=== PATIENT | female | born 1945 | race Caucasian/White ===

== ENCOUNTER 2018-01-04 10:00 | Outpatient (RCR) | payer MEDICARE, SELFPAY ==
--- NOTE | 2017-12-01 13:01 | HP.PTEVAL_ITS ---
Patient's Visit Information CLARE BLANTON is a 72 year old F referred to Physical Therapy by Eusebio Chacon MD with a diagnosis of LUMBAR DDD. Date of Evaluation: 12/01/17 Physical Therapist: Rachna Neil - Visit Plan Frequency: 2-3x /Week Duration: 4-6 Weeks Plan: *GOES BY DEXTER* *CYSTITIS IMPLANT LEFT HIP*. AQUATIC THERAPY FOR PAIN RELEIF, POSTURE CORRECTION/STRENGTHENING, INSTRUCTION IN APPROPRIATE BODY MECHANICS AND ACTIVITY MODIFICATIONS. DLS STARTING WITH A NEUTRAL SPINE PROGRESSING ROM TOLERATED. BEVERLY LE ROM, STRETCHING AND STRENGTHENING. HEP INSTRUCTION. PATIENT PLANS TO MOVE TO [place] IN THE NEAR FUTURE AND WILL HAVE ACCESS TO A POOL THERE. - Subjective Subjective: Diagnosis: LUMBAR DDD. Work/Leisure: RETIRED. Disability: NO. Present symptoms: BEVERLY LOW BACK PAIN. PATIENT DENIES BEVERLY LE SX'S BUT SHE WAS HAVING BURSITIS IN HER LEFT HIP IN WHICH IS BETTER NOW. Present since: LAST JANUARY. Pain Scale: Worst - 8/10 Least - 0/10. Currently: . Commenced as a result of: L1 COMPRESSION FRACTURE MOVING FURNITURE IN [place] MOVING INTO [facility]. Symptoms at onset: LOW BACK PAIN. Worse: STANDING TOO LONG, BENDING, TRYING ON THE FLOOR OR TRYING TO GET BACK UP FROM THE FLOOR. WALKING/SHOPPING. Better: AFTER LYING DOWN FOR AWHILE, SITTING IN RECLINER WITH BACK SUPPORT, MAYBE RECENT NIXON. Disturbed sleep: TAKES ADVIL BEFORE BED. Previous history/Previous treatment: L3 COMPRESSION FX 2007, T1 FX WAS RECENTLY DISCOVED BUT APPARENTLY OLDER. L1 COMPRESSION FX JANUARY 2017. L3 FX WAS TREATED WITH WATER AND LAND PT BUT DID NOT HAVE KYPHOPLASTY - GOOD OUTCOME WITH IT ONLY BOTHERING HER FROM TIME TO TIME AND DID NOT PREVENT HER FROM DOING THINGS. RECENT KYPHOPLASTY FEB 2017 FOR THE L1 COMPRESSION FX - SHE REPORTS GETTING SOME RELIEF BUT NOT COMPLETE RELEIF OF PAIN AFTER KYPHOPLASTY. CREAM PRESCRIPTION MEDICINE FOR LEFT HIP BUSITIS THAT SHE IS STILL USING AND STARTED ABOUT 3 WEEKS AGO. LEFT HIP PAIN IS GONE NOW. SHE ALSO STARTED NIXON'S WITH DR. GAYLE STARTING IN MAR 2017. SHE HAS GONE IN FOR NIXON'S A TOTAL OF 3 TIMES AT THIS POINT WITH THE LAST TIME BEING LAST Wednesday. Coughing/ sneezing/straining: NEGATIVE. Gait: PATIENT REPORTS SHE HAS NEUROPATHY IN HER FEET AND ALTHOUGH SHE DOESN'T HAVE A LOT OF PAIN WALKING, HER WALKING ISN'T BACK TO HER NORMAL YET COMPARED TO BEFORE THIS MORE RECENT COMPRESSION FX. WHEN SHE GOES SHOPPING SHE LEANS ON A GROCERY CART TO RELIEVE THE PRESSURE IN HER LOW BACK AND SHE DID NOT HAVE TO DO THIS BEFORE. Difficulty initiating urinatin: NO. Accidents: NO. Unexplained weight loss: NO. Imaging: PATIENT HAS AN IMPLANT FOR CYSTITIS THEREFORE COULD NOT DO MRI. CAT SCAN REVEALING DDD AND COMPRESSION FX. NO RECENT IMAGING SINCE KYPHOPLASTY THAT PATIENT RECALS. PMH/Recent major surgery: LOW BACK ARTHRITIS. OSTEOPOROSIS. NEUROPATHY. CYSTITIS. HAND ARTHRITIS. NIDDM. NO CANCER. NO STROKE. HTN. NO HEART PROCEEDURES. OTHER: PATIENT REPORTS SHE IS REALLY BUSY RIGHT NOW BECAUSE THEY ARE HAVING A YARD SALE IN DECEMBER AND THEN THEY ARE GOING TO PUT THEIR HOUSE UP FOR SALE AND ARE PLANNING TO MOVE TO [place]. PLANNING TO BE HERE AT LEAST 6-7 WEEKS. - Objective Sitting/Standing Posture: POOR. INCREASED KYPHOSIS, FORWARD HEAD AND ROUNDED SHOULDERS. Lordosis: REDUCED. Lateral shift: NO. Relevant shift: N/A. Active Correction of posture: WORSE HOWEVER SHE TOLERATES PASSIVE CORRECTION WITH SUPPORT IN HER LOW BACK WELL. Other Observations: INDEP GAIT INTO PT WITHOUT ANY ASSISTIVE DEVICES OR LOSS OF BALANCE. SHE WALKS WITH MILD INCREASED TRUNK FLEXION. SHE IS ABLE TO DEMONSTRATE INDEP TRANSFER FROM SIT TO STAND WITHOUT UE ASSIST. Motor deficit: MMT'ING: BEVERLY HIPS 4-/5, KNEE EXT 5/5 , KNEE FLEX 5/5 AND ANKLE DORSIFLEXION 5/5. I PROCEEDED CAREFULLY WITH TESTING OF HIPS AND TESTING DOES PROVOKE INCREASED BACK PAIN BUT DID NOT REMAIN WORSE A RESULT. Sensory deficit: BEVERLY LE LIGHT TOUCH SENSATION APPEARS TO BE INTACT AND SYMMETRICAL. ROM deficit: TIGHT BEVERLY HIP FLEXORS AND HS'S. Lumbar mvmt loss: flex - MOD. ext - KORI. R SG - KORI. L SG - KORI. LUMBAR ROM TESTING ALL PLANES PROVOKES C/O PAIN AT THE END OF THE AVAILABLE RANGE BUT DOES NOT REMAIN WORSE A RESULT. Core strength: POOR - Goals Goal 1:: DECREASE C/O LOW BACK PAIN Goal Time Frame: 4-6 Weeks Goal 2:: IMPROVE STANDING, WALKING AND TRANSFER FUNCTION Goal Time Frame: 4-6 Weeks Goal 3:: INSTRUCT IN PROPHYLAXIS/HEP Goal Time Frame: 4-6 Weeks - Rehabilitation Potential Rehabilitation Potential: Fair - Anticipated Interventions Patient/Client Instruction: Educate patient on: Condition, Plan of Care, Risk Factors, Benefits of Fitness Program For the Purpose of:: To improve self management Therapeutic Exercise to Include: Strength training, Endurance training, Body mechanics, Postural training, Flexibilty training, In an aquatic setting, Active ROM, Dynamic Lumbar Stabilization For the Purpose of:: To decrease pain, To increase ROM, To improve muscle performance and motor function, To increase tolerance to activity/condition/ position, To improve ability of physical actions for home/community/work/leisure Thank you for the opportunity to evaluate your patient. For Medicare and Medicare HMO plans, please review the plan of care and approve it. It will need to be FAXED BACK to us at [phone] for Medicare purposes. Please let me know if there are questions or concerns regarding this plan of care. Physician Signature: Date:
--- NOTE | 2018-04-21 12:22 | HP.PTDCSUM_ITS ---
HP - PT D/C Summary It has been my pleasure to treat CLARE BLANTON under orders from Eusebio Chacon MD, for the diagnosis of LUMBAR DDD for a total of 7 visit(s). Discharge Date: 01/04/18 Please see the following information for a summary of their discharge status. - Subjective Subjective: PATIENT REPORTS SHE HAS HAD A LOT OF STRESS GOING ON AT HOME. STATES SHE THOUGHT SHE WAS MAKING A LITTLE BIT OF PROGRESS WITH THE WATER THERAPY BUT DOING SO MUCH AT HOME HAS AGGREVATED HER BACK. SHE IS MOVING THINGS AROUND A LOT AND DOING SOME LIFTING BECAUSE OF GETTING READY TO MOVE TO [facility]. HOUSE IS GOING ON THE MARKET TODAY. HAD A GARAGE SALE. STATED CELEBREX A WEEK AGO BUT ISN'T SURE IF IT IS HELPING. KEEPS HOPING EVERYDAY SHE WILL FEEL BETTER. GLAD THAT SHE HAS LEARNED THE POOL EX'S THAT SHE CAN DO IN [place] WHEN SHE MOVES. STATES THEY HAVEN'T HAD ANY HELP WITH ALL OF THE MOVING AND HER IS 83 YEARS OLD. SHE REPORTS THEY ARE SELLING ALMOST EVERYTHING SO IT IS NOT ONLY PHYSICAL BUT EMOTIONAL. AT THIS POINT SHE STATES THE ONLY THING STOPPING HER FROM COMING IN AND EXERCISING ON HER OWN HERE AT [employer] IS TIME. WALKING IN TODAY AND GETTING IN/OUT OF THE CAR SHE RATES HER LOW BACK PAIN 4/10. PATIENT REPORTS SHE THINKS SHE WOULD BE A LOT BETTER THAN SHE IS IF SHE DIDN'T HAVE ALL THE STRESS OF MOVING. - Pain Lumbar Spine Pain Intensity (Out of 10): 3 - Overall Improvement % Improvement: 30 - Objective Objective/Function: INDEP GAIT INTO PT WITHOUT ANY ASSISTIVE DEVICES OR LOSS OF BALANCE. SHE WALKS WITH MILD INCREASED TRUNK FLEXION AND IMPROVED CADANCE. SHE IS STILL ABLE TO DEMONSTRATE INDEP TRANSFER FROM SIT TO STAND WITHOUT UE ASSIST. Motor deficit: MMT'ING: BEVERLY HIPS 4/5, KNEE EXT 5/5, KNEE FLEX 5/5 AND ANKLE DORSIFLEXION 5/5. PATIENT REPORTED MILD HIP/LBP WITH HIP TESTING TODAY. Sensory deficit: BEVERLY LE LIGHT TOUCH SENSATION APPEARS TO BE INTACT AND SYMMETRICAL. ROM deficit: MILD BEVERLY HIP FLEXORS AND HS TIGHTNESS. Lumbar mvmt loss: flex - NIL. ext - KORI. R SG - KORI. L SG - KORI. LUMBAR ROM TESTING DID NOT PROVOKE MUCH C/O PAIN TODAY EXCEPT A LITTLE BIT WITH SG TESTING THAT DID NOT REMAIN WORSE A RESULT. PAINFREE LUMBAR FLEXION ROM IS GREATLY IMPOVED. Core strength: POOR. ALTHOUGH BACK OSWESTRY DID NOT IMPROVE SHE REPORTS IMPROVEMENT AND TESTING IMPROVED. - Goals Goal 1:: DECREASE C/O LOW BACK PAIN Goal Progress: Goal Met Goal 2:: IMPROVE STANDING, WALKING AND TRANSFER FUNCTION Goal Progress: Goal Met Goal 3:: INSTRUCT IN PROPHYLAXIS/HEP Goal Progress: Goal Met - Plan Plan: D/C TO INDEP EX. PATIENT IS AGREEABLE TO DISCHARGE. - D/C Information If there are questions or concerns regarding this patient's physical therapy, please feel free to call me at [phone]. Thank you for the referral of this patient. Sincerely, Rachna Neil
== END 2018-01-04 19:00 | disposition home or self-care (01) ==
LOC: PT 10:00
PROVIDERS: Family Provider Family Medicine; PCP Family Medicine; Visit Provider Anesthesiology Pain Medicine
DX: M51.36 Other intervertebral disc degeneration, lumbar region (principal)
CPT/HCPCS: 97113; 97162; 97164